=== PATIENT | male | born 1945 | race Caucasian/White ===

== ENCOUNTER 2017-02-09 04:04 | Emergency (ER) | payer MEDICARE, BC ==
[~2017-02-09] VITALS: Ht 180.3 cm; Wt 72.6 kg
--- NOTE | 2017-02-09 04:20 | NUR ---
PT BIBSELF, AMBUALTORY TO ER BED 3 C/O "FREQUENT URINATION WITH LITTLE OUTPUT" PT AOX4 RR EVEN AND UNLABORED. NO SOB NOTED. NAD NOTED. NO NVD AT THIS TIME. PT GOWNED WAITING FOR MD GALVEZ.
[2017-02-09] MEDS ORDERED: LIDOCAINE 2% JEL UROJET 10 ML MM ONE ×2 (04:24→04:30)
--- NOTE | 2017-02-09 04:28 | NUR ---
VIA BLADDER SCAN NOTED FLUID >546 MLS, VERBAL ORDERS PER IVELISSE TO INSERT F/C
--- NOTE | 2017-02-09 04:45 | NUR ---
16 FR F/C INSERTED. URINE COLLECTED. CALLED LAB FOR [employer] OPERATOR.
[2017-02-09 05:05] LABS: APPEARANCE,URINE CLEAR (CLEAR); BILIRUBIN,URINE NEGATIVE (NEGATIVE); BLOOD, URINE 1+ Ery/uL (NEGATIVE); COLOR,URINE YELLOW (YELLOW); KETONES,URINE NEGATIVE (NEGATIVE); LEUKOCYTE ESTERASE ,URINE 1+ (NEGATIVE); NITRITE, URINE NEGATIVE (NEGATIVE); PROTEIN,URINE NEGATIVE (NEGATIVE); UGLUCOSE NEGATIVE (NEGATIVE); UROBILINOGEN,URINE 0.2 EU/dL (0.2)
[2017-02-09 05:10] LABS: ADD URINE CULTURE YES; BACTERIA,URINE Rare /HPF (None Seen); RBC,URINE 0-3 /HPF (0-2); SQUAMOUS EPITHELIAL CELL,UR Few /HPF (None Seen)
--- NOTE | 2017-02-09 05:15 | NUR ---
DR. OVIEDO AT BEDSIDE SPEAKING TO PT REGARDING RESULTS.
--- NOTE | 2017-02-09 05:24 | NUR ---
PT REFUSED F/C LEG BAG. RISK AND BENEFITS EXPLAINED X3. PT STRONGLY REFUSED. DR. IVELISSE BENITEZ.
--- NOTE | 2017-02-09 05:29 | NUR ---
Patient discharged to home in stable condition. Written and verbal after care instructions given. Patient verbalizes understanding of instruction. ambulatory with a steady gait
[2017-02-09 05:30] VITALS: BP 154/84
== END 2017-02-09 05:30 | disposition home or self-care (01) ==
LOC: ER 04:07
DX: N39.0 Urinary tract infection, site not specified (principal); R33.9 Retention of urine, unspecified; N40.0 Benign prostatic hyperplasia without lower urinary tract symptoms
CPT/HCPCS: 51702; 81001; 87086; 99285; A4606; J3490; 81000-TC; Z7610